=== PATIENT | male | born 1995 | race Caucasian/White ===

== ENCOUNTER 2020-09-21 11:41 | Emergency (ER) | payer SELFPAY ==
--- OUTSIDE RECORDS SUMMARY | 2020-09-21 11:47 | XMS REPORT | Continuity of Care Document ---
:1995 Author Organization [facility] t Address [address] [place] [address] Care Team Providers Name Role Phone Pcp Primary Care Physician Unavailable Uziel MARCH Attending Clinician Unavailable David CUMMINGS Attending Clinician Unavailable RODERICK Attending Clinician Unavailable NONE Attending Clinician Unavailable KRISTEN Attending Clinician Unavailable Uziel MARCH Admitting Clinician Unavailable David CUMMINGS Admitting Clinician Unavailable RODERICK Admitting Clinician Unavailable NONE Admitting Clinician Unavailable KRISTEN Admitting Clinician Unavailable Problems Condition Condition Condition Status Onset Resolution Last Treating Co mments Source Name Details Category Date Date Treatment Clinician Date Vomiting V[facility] (LUF/LI V/SA) Dehydratio Dehydratio Problem Active [facility] l (LUF/LI V/SA) Refractory Refractory Problem Active 2019-[address] nausea and nausea and 1-16 Graciela kes - vomiting vomiting 00:00: Memori a 00 l (LUF/LI V/SA) Colitis Colitis Problem Active [facility] l (LUF/LI V/SA) Dehydratio Dehydratio Problem Active [facility] Memoria [facility] l (LUF/LI V/SA) Suicidal Suicidal Problem [facility] 2018[facility] - [facility] Memoria 00 l (LUF/LI V/SA) Gastritis Gastritis Problem Active 2018-05 [facility] 1-15 [facility] - 00:[facility]: Memoria 00 l (LUF/LI V/SA) Severe Severe Disease Active [facility] dehydratio dehydratio 6-17 Graciela kes - n n 00:00: [facility] Allergies, Adverse Reactions, Alerts This patient has no known allergies or adverse reactions. Social History Social Habit Start Date Stop Date Quantity Comments Source Sex Assigned At [facility] History of tobacco Cigarette Smoker [facility] use [facility] Cigarettes smoked [address] [facility] - current (pack per 00:00:00 00:00:00 Medical Center day) - Reported Tobacco use and 2018 2018 Current user [facility] - exposure 00:00:00 00:00:00 [facility] Alcohol intake 2018 2018 Current drinker [facility] - 00:00:00 00:00:00 of alcohol [facility] Center (finding) Alcohol Comment 2015-10-22 2015-10-[address] [facility] - 00:00:00 00:00:00 [facility] Smoking Status Start Date Stop Date Source Current every day smoker 2018 00:00:00 [facility] Medications Ordered Filled Start Stop Current Ordering Indication Dosage Frequency Signature Comments Components Source Medication Medication Date Date Medication? Clinician (SIG) Name Name sertraline sertraline Yes 25mg 1xD [facility] 25 MG Oral 25 MG Oral [facility] es - Tablet Tablet Memoria l (LUF/LI V/SA) trazodone trazodone Yes [facility]mg [facility] hydrochlori hydrochlori [facility] - de 50 MG de 50 MG Memoria Oral Tablet Oral Tablet l (LUF/LI V/SA) ondansetron ondansetron Yes 4mg Q10.00H orally [address] [facility] 4 MG Oral 4 MG Oral to 3 times [facility] - Tablet Tablet per day as Memor ia needed. l (LUF/LI V/SA) pantoprazol pantoprazol Yes 40mg 1xD orally [facility] 40 MG e 40 MG daily [facility] - Delayed Delayed Memoria Release Release l Oral Tablet Oral Tablet ( LUF/LI V/SA) promethazin promethazin Yes 25mg 4xD orally [facility] e every 6 [facility] - hydrochlori hydrochlori hours as Memoria de 25 MG de 25 MG needed. l Oral Tablet Oral Tablet (as needed (LUF/LI for nausea V/SA) and vomiting) sertraline sertraline Yes 25mg 1xD orally [facility] 25 MG Oral 25 MG Oral daily Graciela kes - Tablet Tablet Memoria l (LUF/LI V/SA) trazodone trazodone Yes 50mg orally [facility] hydrochlori hydrochlori every day [facility] - de 50 MG de 50 MG at bedtime M emoria Oral Tablet Oral Tablet l (LUF/LI V/SA) ondansetron ondansetron Yes 4mg Q10.00H [facility] 4 MG Oral 4 MG Oral [facility] - Tablet Tablet Memoria l (LUF/LI V/SA) pantoprazol pantoprazol Yes 40mg 1xD [facility] e 40 MG e 40 MG [facility] - Delayed Delayed Memoria Release Release l Oral Tablet Oral Tablet ( LUF/LI V/SA) promethazin promethazin Yes 25mg 4xD [facility] e [facility] - hydrochlori hydrochlori M emoria de 25 MG de 25 MG l Oral Tablet Oral Tablet ( LUF/LI V/SA) Immunizations Ordered Immunization Filled Immunization Date Status Commen ts Source Name Name Influenza, Influenza, 2020-03-23 Completed [facility] injectable, injectable, 13:48:00 [facility] quadrivalent, quadrivalent, (F/DUSTY /SA) preservative free preservative free Vital Signs Vital Name Observation Time Observation Value Comments Source Body Temperature 2020-07-26 19:00:00 98.5 [degF] [facility] (LUF/DUSTY/SA) Pulse Rate 2020-07-26 19:00:00 60 /min [facility] (F/DUSTY/SA) O2% BldC Oximetry 2020-07-26 19:00:00 98 % [facility] (F/DUSTY/SA) BP Systolic 2020-07-26 19:00:00 142 mm[Hg] [facility] (LUF/DUSTY/SA) BP Diastolic 2020-07-26 19:00:00 76 mm[Hg] [facility] (LUF/DUSTY/SA) Respiratory Rate 2020-07-26 14:02:00 20 /min [facility] (LUF/DUSTY/SA) Pulse Rate 2020-05-10 20:31:00 67 /min [facility] (LUF/DUSTY/SA) O2% BldC Oximetry 2020-05-10 20:31:00 99 % [facility] (LUF/DUSTY/SA) BP Systolic 2020-05-10 20:31:00 114 mm[Hg] [facility] (LUF/DUSTY/SA) BP Diastolic 2020-05-10 20:31:00 49 mm[Hg] [facility] (LUF/DUSTY/SA) Respiratory Rate 2020-05-10 13:46:00 23 /min [facility] (LUF/DUSTY/SA) Body Temperature 2020-05-10 13:41:00 97.6 [degF] [facility] (LUF/DUSTY/SA) Height 2020-05-10 13:41:00 70 [in_i] [facility] (LUF/DUSTY/SA) Weight 2020-05-10 13:41:00 135 [lb_av] [facility] (LUF/DUSTY/SA) BMI (Body Mass Index) 2020-05-10 13:41:00 19.5 kg/m2 [facility] (LUF/DUSTY/SA) Body Temperature 2020-03-23 11:00:00 97.2 [degF] [facility] (LUF/DUSTY/SA) Pulse Rate 2020-03-23 11:00:00 55 /min [facility] (LUF/DUSTY/SA) Respiratory Rate 2020-03-23 11:00:00 18 /min [facility] (LUF/DUSTY/SA) O2% BldC Oximetry 2020-03-23 11:00:00 100 % [facility] (LUF/DUSTY/SA) BP Systolic 2020-03-23 11:00:00 125 mm[Hg] [facility] (LUF/DUSTY/SA) BP Diastolic 2020-03-23 11:00:00 73 mm[Hg] [facility] Weight 2020-03-22 20:45:00 62 kg MANSI [facility] (LUF/DUSTY/SA) Height 2020-03-22 10:07:00 70 [in_i] MANSI [facility] (LUF/DUSTY/SA) Body Temperature 2020-03-21 02:40:00 98.3 [degF] MANSI Lee [facility] (LUF/DUSTY/SA) Pulse Rate 2020-03-21 02:40:00 68 /min MANSI [facility] (LUF/DUSTY/SA) Respiratory Rate 2020-03-21 02:40:00 18 /min MANSI Lee [facility] (LUF/DUSTY/SA) O2% BldC Oximetry 2020-03-21 02:40:00 100 % [facility] BP Systolic 2020-03-21 02:40:00 132 mm[Hg] MANSI [facility] (LUF/DUSTY/SA) BP Diastolic 2020-03-21 02:40:00 72 mm[Hg] MANSI [facility] (LUF/DUSTY/SA) Height 2020-03-20 22:45:00 71 [in_i] MANSI [facility] (LUF/DUSTY/SA) Weight 2020-03-20 22:45:00 63 kg MANSI [facility] (LUF/DUSTY/SA) BMI (Body Mass Index) 2020-03-20 22:45:00 19.4 kg/m2 [facility] (LUF/DUSTY/SA) BP Systolic 2020-02-04 02:01:00 108 mm[Hg] MANSI [facility] (LUF/DUSTY/SA) BP Diastolic 2020-02-04 02:01:00 52 mm[Hg] MANSI [facility] (LUF/DUSTY/SA) Body Temperature 2020-02-04 02:00:00 97.6 [degF] [facility] Pulse Rate 2020-02-04 02:00:00 89 /min MANSI [facility] (LUF/DUSTY/SA) Respiratory Rate 2020-02-04 02:00:00 18 /min [facility] (LUF/DUSTY/SA) O2% BldC Oximetry 2020-02-04 02:00:00 100 % [facility] (LUF/DUSTY/SA) Height 2020-02-03 21:36:00 70 [in_i] [facility] Angie [facility] (LUF/DUSTY/SA) Weight 2020-02-03 21:36:00 130 [lb_av] [facility] (LUF/DUSTY/SA) BMI (Body Mass Index) 2020-02-03 21:36:00 18.8 kg/m2 [facility] (LUF/DUSTY/SA) Pulse Rate 2019-12-19 23:08:00 64 /min [facility] (LUF/DUSTY/SA) O2% BldC Oximetry 2019-12-19 23:08:00 100 % [facility] (LUF/DUSTY/SA) BP Systolic 2019-12-19 23:08:00 113 mm[Hg] [facility] (LUF/DUSTY/SA) BP Diastolic 2019-12-19 23:08:00 55 mm[Hg] [facility] (LUF/DUSTY/SA) Body Temperature 2019-12-19 18:02:00 97.2 [degF] [facility] (LUF/DUSTY/SA) Respiratory Rate 2019-12-19 18:02:00 18 /min [facility] (LUF/DUSTY/SA) Height 2019-12-19 18:02:00 65 [in_i] [facility] (LUF/DUSTY/SA) Weight 2019-12-19 18:02:00 130 [lb_av] [facility] (LUF/DUSTY/SA) BMI (Body Mass Index) 2019-12-19 18:02:00 21.6 kg/m2 [facility] (LUF/DUSTY/SA) Procedures Procedure Date / Time Performed Performing Clinician [facility] GASTR[facility] / 2020-03-23 10:29:00 [facility] COLONOSCOPY [facility] (LUF/DUSTY/SA) EGD TRANSORAL BIOPSY 2020-03-23 00:00:[address] [facility] - SINGLE[facility]MULTIPLE [facility] (LUF/DUSTY/SA) Plan of Care Planned Activity Planned Date Details Comments Source Future Scheduled 2020-01-06 INFLUENZA VACCINE (#1) [facility] - Test 00:00:00 [code = INFLUENZA Medical Ce nter VACCINE (#1)] Future Scheduled 2015 Lipid panel [facility] s - Test 00:00:00 (procedure) [code = Medical Center [id number]] Future Scheduled 2001 PNEUMOCOCCAL VACCINE [facility] - Test 00:00:00 0-64 YRS (1 of 1 - Medical C enter PPSV23) [code = PNEUMOCOCCAL VACCINE 0-64 YRS (1 of 1 - PPSV23)] Encounters Start End Encounter Admission Attending Care Care Encounter Source Date/Time Date/Time Type Type Clinicians Facility Department ID 2020-07-26 2020-07-26 RADHA MARCH, [facility] [id number] [facility] St 13:47:00 19:22:[address] [facility] - [place] N, [address] [place], [place] [address] 2020-07-26 2020-07-26 Inpatient [facility] [id number] [facility] 00:00:00 00:00:00 [facility] [id number] [facility] - N, [id number] [place]PASS, ([place] [address] 2020-07-26 2020-07-26 Inpatient [facility] [id number] [facility] 00:00:00 00:00:00 [facility] [id number] [facility] - N, [id number] [id number] l [place]PASS, (LUF[place] [address] 2020-05-10 2020-05-10 PROC&TX [facility] [id number] [facility] St 22:55:00 23:40:[address] [facility] L ukes - CARRIED N, [address] LE[address] [place]PASS, (LUF/[place] [address] 2020-05-10 2020-05-10 NAUSEA E JOAQUIM, [facility] [id number] [facility] 13:36:00 20:58:00 [facility] DON[facility] u[facility] - VOMITING N, [address] D [place]PASS, (LUF/[place] [address] 2020-05-10 2020-05-10 Inpatient [facility] [id number] [facility] [id number] [facility] - N, [address] [id number] [address] [id number] l [place]PASS, (LUF/[place] [address] 2020-05-10 2020-05-10 Inpatient [facility] [id number] [facility] [facility] [id number] [facility] - N, [address] [id number] [id number] [address] [place]PASS, ([place] [address] 2020-05-10 2020-05-10 Inpatient [facility] [id number] [facility] [facility]00 [facility] [id number] [facility] - N, [address] [id number] [address] [id number] [address] [place]PASS, ([place] [address] 2020-05-10 2020-05-10 Inpatient [facility] [id number] [facility] [facility]00 00[facility]:00 [facility] [id number] [facility] - N, [address] [id number] [id number] l [place]PASS, (LUF[place] [address] 2020-03-23 2020-03-23 Inpatient [facility] [place] [id number] 11:30:00 23:59:00 [place] [facility] [place], [address] (LUF/LI [address], V/[place]) [place] [address] 2020-03-22 2020-03-23 UNS E JOAQUIM, [facility] [id number] [facility] 09:59:00 13:48:00 CHRONIC VU RAJENDRA DONALD L ukes - GASTRITIS N, [address] BLEEDING [place]PASS, ([place] [address] 2020-03-20 2020-03-21 GENERALIZE E FASULLO, [facility] [id number] [facility] 22:33:00 02:40:00 D KARI BELLO ODILON L ukes - ABDOMINAL N, [address] [place], (LUF[place] [address] 2020-02-03 2020-02-04 NONINFECTI E MACO VAUGHN [facility] [id number] [facility] 21:26:00 02:09:00 VE GE & BELLO ODILON L ukes - COLITIS N, [address] [place], (LUF/[place] [address] 2019-12-19 2019-12-19 DEHYDRATIO E [facility] [id number] [facility] 17:55:00 23:09:00 N RAJENDRA DONALD L ukes - N, [address] [place], ([place] [address] Results Test Description Test Time Test Comments Results Result Comments Source [facility] 2020-07-26 16:13:00 Test Item Value Reference Range Interpretation Comme nts Glucose (test code = GLU) 187 mg/dl 75-110 H BUN (test code = BUN) 10.0 mg/dl 6.0-17.0 Creatinine (test code = 0.8 mg/dl 0.4-1.2 CREA) Sodium (test code = NA) 139 mmol/l 137-145 Potassium (test code = K) 3.2 mmol/l 3.5-5.0 L Chloride (test code = CL) 108 mmol/l 98-107 H CO2 (test code = CO2) 21 mmol/l 22-30 L Calcium (test code = 9.6 mg/dl 8.4-10.2 CALC) T Protein (test code = 7.7 gm/dl 5.1-8.7 TP) Albumin (test code = ALB) 4.3 gm/dl 3.5-4.6 A/G Ratio (test code = 1.3 % 1.1-2.2 AGRAT) AST (SGOT) (test code = 18 U/L 11-36 AST) ALT (SGPT) (test code = 20 U/L 11-40 ALT) Alkaline Phos (test code 74 U/L 47-114 = ALKP) Total Bilirubin (test 0.3 mg/dl 0.2-1.2 code = TBIL) Globulin (test code = 3.4 gm/dl 2.3-3.5 GLOBU) Calcium, Corrected (test 9.4 mg/dl 8.4-10.2 Lorna ious formulas exist for code = CALCCORR) corrected s martin calcium results, each y ielding different value s. This corrected resul t was based on the formula: Co rrected Calcium = Serum Calcium + [0.8 * ( 4 - SerumAl bumin)] EGFR if >60 mL/min/1.73m\\S\\2 (test code = EGFRAA) EGFR if Non- >60 mL/min/1.73m\\S\\2 Estimated Glomerular Mauritanian (test code = Filtra tion Rate (eGFR) EGFRNA) Reference Inter vals Decision Points for 18 y ears and older and average bod y mass: >= 60 Does not exclude kid macario disease. 30 - 59 Suggests moderate chroni c kidney disease and indica jewell the need for further inv estigation including asses sment of proteinuria and cardiovascular factors. < 30 Us ually indicates a nee d for referral for assessment and management of chronic kidney failure. [id number] 16:13:00 Test Item Value Reference Range Interpretation Comments Lipase (test code = LIPA) 169 U/L 8-223 CBC WITH AUTO [id number] 15:20:00 Test Item Value Reference Range Interpretation Comments WBC (test code = 24.51 4.80-10.80 H WBC) 10\\S\\3/ul RBC (test code = 4.43 10\\S\\6/ul 4.70-6.10 L RBC) Hemoglobin (test 13.9 gm/dl 14.0-18.0 L code = HGB) Hematocrit (test 38.5 % 42.0-50.0 L code = HCT) MCV (test code = 86.9 fL 80.0-94.0 MCV) MCH (test code = 31.4 pg 27.0-31.0 H MCH) MCHC (test code = 36.1 gm/dl 33.0-37.0 MCHC) RDW (test code = 12.1 % 11.5-14.5 RDWVC) Platelet (test code 342 10\\S\\3/ul 130-400 = PLT) MPV (test code = 9.5 fL 7.4-10.4 A "NOT MEASUR ED" MPV) RESULTS ARE DIS PLAYED WHEN THE INSTRU MENT HAS A SUPPRESSE D OR UNREPORTABLE RE SULT. THIS WILL MOST OFTEN HAPPEN WITH THE MPV WHEN THERE IS A N ABNORMAL PLATEL ET DISTRIBUTION DU E TO A CRITICAL LOW VA LUE OR PLATELET CLUMPI NG. THE RDW MAY BE SUPPRESSED IF T HERE ARE MULTIPLE PE AKS PRESENT ON THE RBC HISTOGRAM. IN THIS CASE, A MANUAL REVIEW OF THE SLIDE WI LL BE PERFORMED, AND RBC MORPHOLOGY WILL BE NOTED ON THE RE PORT. NE% (test code = 85.9 % 42.0-75.0 H NE) LY% (test code = 6.6 % 13.0-42.0 L LY) MO% (test code = 5.7 % 4.0-14.0 MO) EO% (test code = 0.2 % 1.0-5.0 L EO) BA% (test code = 0.5 % 0.0-3.0 BA) IG% (test code = 1.1 % 0.0-0.4 H IG%) CULTURE, [id number] 20:07:00To start 15mins after 1st cultureSpecimen: BloodCollected: 05/10/2020 19:07 Status: Final Last Updated: 05/15/2020 20:06 (1) To start 15mins after 1st culture CULTURE (Final) (Final) No Growth After 5 DaysCULTURE, ANAEROBE [id number] 20:07:00Specimen: BloodCollected: 05/10/2020 19:07 Status: Final Last Updated: 05/15/2020 20:06 CULTURE (Final) (Final) No Growth After 5 DaysCULTURE, ANAEROBE BLOOD 2020-05-15 20:07:00Specimen: BloodCollected: 05/10/2020 19:07 Status: Final Last Updated: 05/15/2020 20:06 CULTURE (Final) (Final) No Growth After 5 Days CULTURE, [id number] 20:07:00Specimen: BloodCollected: 05/10/2020 19:07 Status: Final Last Updated: 05/15/2020 20:06 CULTURE (Final) (Final) No Growth After 5 DaysLACTIC ACID [id number] 19:58:00 Test Item Value Reference Range Interpretation Comments LACTATE (test code = 3.7 mmol/l 0.7-2.0 HH RESULT CALLED TO RICARDO FLOYD RN (ER ) AT 19:55/READ BACK /R Critical values were called to RICARDO PORTER by [id number] on 05/10/20 19:58 . Results were read back by RICARDO PORTER.CBC WITH AUTO [id number] 19:25:00 Test Item Value Reference Range Interpretation Comments WBC (test code = WBC) 27.44 10\\S\\3/ul 4.80-10.80 H RBC (test code = RBC) 4.34 10\\S\\6/ul 4.70-6.10 L Hemoglobin (test code 13.9 gm/dl 14.0-18.0 L = HGB) Hematocrit (test code 38.6 % 42.0-50.0 L = HCT) MCV (test code = MCV) 88.9 fL 80.0-94.0 MCH (test code = MCH) 32.0 pg 27.0-31.0 H MCHC (test code = 36.0 gm/dl 33.0-37.0 MCHC) RDW (test code = 12.2 % 11.5-14.5 RDWVC) Platelet (test code = 331 10\\S\\3/ul 130-400 PLT) MPV (test code = MPV) 9.5 fL 7.4-10.4 A NE% (test code = NE) 88.2 % 42.0-75.0 H LY% (test code = LY) 3.8 % 13.0-42.0 L MO% (test code = MO) 7.1 % 4.0-14.0 EO% (test code = EO) 0.0 % 1.0-5.0 L BA% (test code = BA) 0.3 % 0.0-3.0 IG% (test code = IG%) 0.6 % 0.0-0.4 H Neutrophils (test 89 10\\S\\3/ul 42-75 H No previou s value code = NEUTR) was reported. A value of 89 was entered by [id number] on 05/10/2020 19:25 Lymphocytes (test 5 % 13-42 L No previou s value code = LYMPH) was reported. A value of 5 was entered by [email or web address] on 05/10/2020 19:25 Monocytes (test code 6 % 4-14 No prev ious value = MONOS) was reported. A value of 6 was entered by [email or web address] on 05/10/2020 19:25 [id number] 17:59:00 Test Item Value Reference Range Interpretation Comments Lipase (test code = LIPA) 102 U/L 8-223 [id number] 17:59:00 Test Item Value Reference Range Interpretation Comments Glucose (test code 163 mg/dl 75-110 H = GLU) BUN (test code = 8.0 mg/dl 6.0-17.0 BUN) Creatinine (test 0.9 mg/dl 0.4-1.2 code = CREA) Sodium (test code = 138 mmol/l 137-145 NA) Potassium (test 3.4 mmol/l 3.5-5.0 L code = K) Chloride (test code 106 mmol/l 98-107 = CL) CO2 (test code = 22 mmol/l 22-30 CO2) Calcium (test code 9.9 mg/dl 8.4-10.2 = CALC) T Protein (test 8.1 gm/dl 5.1-8.7 code = TP) Albumin (test code 4.5 gm/dl 3.5-4.6 = ALB) A/G Ratio (test 1.3 % 1.1-2.2 code = AGRAT) AST (SGOT) (test 16 U/L 11-36 code = AST) ALT (SGPT) (test 20 U/L 11-40 code = ALT) Alkaline Phos (test 88 U/L 47-114 code = ALKP) Total Bilirubin 0.6 mg/dl 0.2-1.2 (test code = TBIL) Globulin (test code 3.6 gm/dl 2.3-3.5 H = GLOBU) Calcium, Corrected 9.5 mg/dl 8.4-10.2 Various f ormulas exist (test code = for corrected s martin CALCCORR) calcium results , each yielding differ ent values. This corrected resul t was based on the fo rmula: Corrected Calci um = SerumCalcium + [0.8 * ( 4 - SerumAlbu min)] EGFR if >60 Mauritanian (test code mL/min/1.73m\\ = EGFRAA) S\\2 EGFR if Non- >60 Estimate d Glomerular Mauritanian (test code mL/min/1.73m\\ Filtrat ion Rate (eGFR) = EGFRNA) S\\2 Reference Inter vals Decision Points for 18 years and older and average body ma ss: >= 60 Does not exc lude kidney disease. 30 - 59 Suggests modera te chronic kidney disease and indicat es the need for furthe r investigation including asses sment of proteinuria and cardiovascular factors. < 30 Usually in dicates a need for refe rral for assessment and management of c hronic kidney failure. [id number] 05:27:00 Test Item Value Reference Range Interpretation Comments Glucose (test code 92 mg/dl 75-110 = GLU) BUN (test code = 6.0 mg/dl 6.0-17.0 BUN) Creatinine (test 0.8 mg/dl 0.4-1.2 code = CREA) Sodium (test code = 142 mmol/l 137-145 NA) Potassium (test 3.9 mmol/l 3.5-5.0 code = K) Chloride (test code 110 mmol/l 98-107 H = CL) CO2 (test code = 28 mmol/l 22-30 CO2) Calcium (test code 8.5 mg/dl 8.4-10.2 = CALC) EGFR if >60 Mauritanian (test code mL/min/1.73m\\ = EGFRAA) S\\2 EGFR if Non- >60 Estimate d Glomerular Mauritanian (test code mL/min/1.73m\\ Filtrat ion Rate (eGFR) = EGFRNA) S\\2 Reference Inter vals Decision Points for 18 years and older and average body ma ss: >= 60 Does not exc lude kidney disease. 30 - 59 Suggests modera te chronic kidney disease and indicat es the need for furthe r investigation including asses sment of proteinuria and cardiovascular factors. < 30 Usually in dicates a need for refe rral for assessment and management of c hronic kidney failure. CBC WITH AUTO [id number] 05:09:00 Test Item Value Reference Range Interpretation Comments WBC (test code = WBC) 14.50 10\\S\\3/ul 4.80-10.80 H RBC (test code = RBC) 4.30 10\\S\\6/ul 4.70-6.10 L Hemoglobin (test code = HGB) 13.4 gm/dl 14.0-18.0 L Hematocrit (test code = HCT) 39.7 % 42.0-50.0 L MCV (test code = MCV) 92.3 fL 80.0-94.0 MCH (test code = MCH) 31.2 pg 27.0-31.0 H MCHC (test code = MCHC) 33.8 gm/dl 33.0-37.0 RDW (test code = RDWVC) 12.6 % 11.5-14.5 Platelet (test code = PLT) 266 10\\S\\3/ul 130-400 MPV (test code = MPV) 9.6 fL 7.4-10.4 A NE% (test code = NE) 68.2 % 42.0-75.0 LY% (test code = LY) 20.2 % 13.0-42.0 MO% (test code = MO) 9.6 % 4.0-14.0 EO% (test code = EO) 0.9 % 1.0-5.0 L BA% (test code = BA) 0.6 % 0.0-3.0 IG% (test code = IG%) 0.5 % 0.0-0.4 H CORONAVIRUS 2019 CEPHEID [id number] 18:32:00 Test Item Value Reference Range Interpretation Comments FT (test code Negative The Cephied SA RS-CoV-2 = COVID) (qualifier value) reagent is for in vitro use under FDA Emergency Use Authorization o nly. [facility] This test is performed for stat results in MOOSE [id number] 15:45:28 [facility])Name: HONG KAUR JR EARLE : [id number] Sex: MRIGHT UPPER QUADRANT ULTRASOUND:INDICATION: Abdominal painDISCUSSION:The liver is normal in size and echogenicity. There is no intrahepatic biliaryduct dilatation. Hepatopedal flow is noted in the portal vein.The gallbladder is unremarkable. No sonographic Aguilar's sign was elicited. Thecommon duct is not dilated.The visualized portions of the pancreas, IVC, aorta and right kidney show nosignificant abnormality.There is no ascites in the right upper quadrant.IMPRESSION:Normal right upper quadrant ultrasound.This final report was electronically signed by Dr Hari Perez MD 03/22/20203:39 PMDictated By: HARI PEREZDate: 03/22/2020 15:39URINALYSIS WITH [id number] 13:08:00 Test Item Value Reference Range Interpretation Comments Color (test code = Lt. Yellow UCOLR) Clarity (test code = Clear UCLAR) Glucose (test code = NEGATIVE NEGATIVE N UGLUC) Bilirubin (test code = NEGATIVE NEGATIVE N UBILI) Ketones (test code = 15 NEGATIVE A UKET) Specific [place] (test 1.020 1.005-1.030 A code = USPGR) Blood (test code = UBLD) NEGATIVE NEGATIVE N PH (test code = UPH) 6.5 4.5-8.0 A Protein (test code = NEGATIVE NEGATIVE N UPROT) Urobilinogen (test code 0.2 >0.2 N = U UROB) Nitrite (test code = NEGATIVE NEGATIVE N UNITR) Leukocyte Esterase (test NEGATIVE NEGATIVE N code = ULEUK) WBC (test code = WBCUR) 0-2 0-5 A RBC (test code = RBCUR) 0-1 0-5 A Epithial Cells (test 0-2 0-10 A code = U EPI) Mucous (test code = Trace None Seen A UMUC) Bacteria (test code = Trace None Seen,Trace N UBACT) Crystals Urine (test Few Amorphous None Seen A code = URCRYS) Sediment DRUG SCREEN [id number] 12:49:00 Test Item Value Reference Range Interpretation Comments FT (test code = Negative AMPHET) (qualifier value) FT (test code = Negative ALVINO) (qualifier value) FT (test code = Negative BENZO) (qualifier value) FT (test code = Negative GABI) (qualifier value) FT (test code = Negative MTD) (qualifier value) FT (test code = Negative OPIAT) (qualifier value) FT (test code = Negative The followin g table PCP) (qualifier provides an value) interpretive gu elmer for the Drugs of Ab use ran on the Siemens [place] analyzer listed there in: [place] mines < 1000 ng/ml = Negative Barbituates < 200 ng/ml = Negat ileana Benzodiazapines < 200 ngml = Negat ileana Cocaine < 300 ng/ml = Negat ileana Methadone < 300 ng/ml = Negat ileana Opiate < 300 ng/ml = Negat ileana PCP < 25 ng/ml = Nega tive THC < 50 ng/ml = Negat ileana Results equal t o or greater than th e above cut-off values = Presumptive Pos itive. Confirmation of Presumptive Pos itive results are elliot ilable upon request. Cannabinoids, Positive THC (test code = THC) PH (test code = 6.5 No previous value was UPH) reported. A lillian ue of 6.5 was entered by [id number] on 03/07 12:49 Specific [place] 1.020 No previous value was (test code = reported. A lillian ue of USPGR) 1.020 was enter ed by [id number] on 03/07 12:49 [id number] 11:18:00 Test Item Value Reference Range Interpretation Comments Glucose (test code 141 mg/dl 75-110 H = GLU) BUN (test code = 8.0 mg/dl 6.0-17.0 BUN) Creatinine (test 0.9 mg/dl 0.4-1.2 code = CREA) Sodium (test code = 141 mmol/l 137-145 NA) Potassium (test 3.3 mmol/l 3.5-5.0 L code = K) Chloride (test code 109 mmol/l 98-107 H = CL) CO2 (test code = 21 mmol/l 22-30 L CO2) Calcium (test code 9.4 mg/dl 8.4-10.2 = CALC) T Protein (test 8.1 gm/dl 5.1-8.7 code = TP) Albumin (test code 4.6 gm/dl 3.5-4.6 = ALB) A/G Ratio (test 1.3 % 1.1-2.2 code = AGRAT) AST (SGOT) (test 35 U/L 11-36 code = AST) ALT (SGPT) (test 23 U/L 11-40 code = ALT) Alkaline Phos (test 96 U/L 47-114 code = ALKP) Total Bilirubin 0.4 mg/dl 0.2-1.2 (test code = TBIL) Globulin (test code 3.5 gm/dl 2.3-3.5 = GLOBU) Calcium, Corrected 8.9 mg/dl 8.4-10.2 Various f ormulas exist (test code = for corrected s martin CALCCORR) calcium results , each yielding differ ent values. This corrected resul t was based on the fo rmula: Corrected Calci um = SerumCalcium + [0.8 * ( 4 - SerumAlbu min)] EGFR if >60 [place] (test code mL/min/1.73m\\ = EGFRAA) S\\2 EGFR if Non- >60 Estimate d Glomerular [place] (test code mL/min/1.73m\\ Filtrat ion Rate (eGFR) = EGFRNA) S\\2 Reference Inter vals Decision Points for 18 years and older and average body ma ss: >= 60 Does not exc lude kidney disease. 30 - 59 Suggests modera te chronic kidney disease and indicat es the need for furthe r investigation including asses sment of proteinuria and cardiovascular factors. < 30 Usually in dicates a need for refe rral for assessment and management of c hronic kidney failure. [id number] 11:18:00 Test Item Value Reference Range Interpretation Comments Lipase (test code = LIPA) 156 U/L 8-223 CBC WITH AUTO [id number] 11:08:00 Test Item Value Reference Range Interpretation Comments WBC (test code = WBC) 20.91 10\\S\\3/ul 4.80-10.80 H RBC (test code = RBC) 4.52 10\\S\\6/ul 4.70-6.10 L Hemoglobin (test code 14.6 gm/dl 14.0-18.0 = HGB) Hematocrit (test code 41.2 % 42.0-50.0 L = HCT) MCV (test code = MCV) 91.2 fL 80.0-94.0 MCH (test code = MCH) 32.3 pg 27.0-31.0 H MCHC (test code = 35.4 gm/dl 33.0-37.0 MCHC) RDW (test code = 12.4 % 11.5-14.5 RDWVC) Platelet (test code = 321 10\\S\\3/ul 130-400 PLT) MPV (test code = MPV) 9.5 fL 7.4-10.4 A NE% (test code = NE) 83.0 % 42.0-75.0 H LY% (test code = LY) 9.4 % 13.0-42.0 L MO% (test code = MO) 6.2 % 4.0-14.0 EO% (test code = EO) 0.5 % 1.0-5.0 L BA% (test code = BA) 0.4 % 0.0-3.0 IG% (test code = IG%) 0.5 % 0.0-0.4 H Neutrophils (test 85 10\\S\\3/ul 42-75 H No previou s value code = NEUTR) was reported. A value of 85 was entered by [id number] on 03/22/2020 11:08 Lymphocytes (test 8 % 13-42 L No previou s value code = LYMPH) was reported. A value of 8 was entered by [id number] on 03/22/2020 11:08 Monocytes (test code 7 % 4-14 No prev ious value = MONOS) was reported. A value of 7 was entered by [id number] 570 on 03/22/2020 11:08 [id number] 11:07:00 Test Item Value Reference Range Interpretation Comments Magnesium (test code = MG) 1.7 mg/dl 1.6-2.3 CT ABDOMEN/PELVIS [id number] 00:54:47with IV contrast [facility] ([facility]Name: HONG KAUR JR EARLE : [id number] Sex: MEXAM: CT Abdomen and Pelvis WITH contrastINDICATION: [id number]: Abdominal painCOMPARISON: Abdominal CT February 03, 2020.TECHNIQUE: Abdomen and pelvis were scanned utilizing a multidetector helicalscanner from the lung base to the pubic symphysis after administration of IVcontrast. Coronal and sagittal reformations were obtained. Routine protocol wasperformed. Scan was performed when during portal venous phase.IV CONTRAST: 100 mL of Isovue 300ORAL CONTRAST: NoneCOMPLICATIONS: NoneRADIATION DOSE:Total DLP: ... 325 mGy*cmEstimated effective dose: (DLP x 0.015 x size factor) mSvCTDIvol has been reviewed. It is below the limits set by the RadiationProtocol Committee (RPC).Dose modulation, iterative reconstruction, and/or weight based adjustmentsof the mA/kV was utilized to reduce the radiation dose to as low as reasonablyachievable.FINDINGS:LINES and TUBES: None.LOWER THORAX: UnremarkableHEPATOBILIARY: No focal hepatic lesions. No biliary ductal dilation.GALLBLADDER: Noradio-opaque stones or sludge. No wall thickening.SPLEEN: No splenomegaly.PANCREAS: No focal massesor ductal dilatation.ADRENALS: No adrenal nodulesKIDNEYS/URETERS: Kidneys enhance symmetrically. Nohydronephrosis. No cystic orsolid mass lesions. No stones.GI TRACT: No abnormal distention, wall thickening, or evidence of bowelobstruction. Appendix is normal.PELVIC ORGANS/BLADDER: Unremarkable.LYMPH NODES: No lymphadenopathy.VESSELS: Unremarkable.PERITONEUM / RETROPERITONEUM: No free air orfluid.BONES: Unremarkable.SOFT TISSUES: Unremarkable.IMPRESSION:No acute CT abnormality in the abdomen or pelvisThis final report was electronically signed by Dr Jony Barkley, 03/21/202012:48 AMDictated By: JONY BARKLEYDate: 03/21/2020 00:48URINALYSIS WITH [id number] 00:15:00 Test Item Value Reference Range Interpretation Comments Color (test code = Yellow UCOLR) Clarity (test code = Clear UCLAR) Glucose (test code = NEGATIVE NEGATIVE N UGLUC) Bilirubin (test code = NEGATIVE NEGATIVE N UBILI) Ketones (test code = 15 NEGATIVE A UKET) Specific [place] (test 1.015 1.005-1.030 A code = USPGR) Blood (test code = UBLD) NEGATIVE NEGATIVE N PH (test code = UPH) >=9.0 4.5-8.0 A Protein (test code = NEGATIVE NEGATIVE N UPROT) Urobilinogen (test code 0.2 >0.2 N = U UROB) Nitrite (test code = NEGATIVE NEGATIVE N UNITR) Leukocyte Esterase (test NEGATIVE NEGATIVE N code = ULEUK) WBC (test code = WBCUR) None seen 0-5 A RBC (test code = RBCUR) None seen 0-5 A Epithial Cells (test 0-2 0-10 A code = U EPI) Bacteria (test code = None seen None Seen,Trace A UBACT) Crystals Urine (test Moderate Amorphous None Seen A code = URCRYS) Sediment [id number] 00:01:00 Test Item Value Reference Range Interpretation Comments Glucose (test code 157 mg/dl 75-110 H = GLU) BUN (test code = 9.0 mg/dl 6.0-17.0 BUN) Creatinine (test 1.1 mg/dl 0.4-1.2 code = CREA) Sodium (test code = 140 mmol/l 137-145 NA) Potassium (test 2.9 mmol/l 3.5-5.0 LL code = K) Chloride (test code 107 mmol/l 98-107 = CL) CO2 (test code = 22 mmol/l 22-30 CO2) Calcium (test code 9.1 mg/dl 8.4-10.2 = CALC) T Protein (test 8.0 gm/dl 5.1-8.7 code = TP) Albumin (test code 4.3 gm/dl 3.5-4.6 = ALB) A/G Ratio (test 1.2 % 1.1-2.2 code = AGRAT) AST (SGOT) (test 22 U/L 11-36 code = AST) ALT (SGPT) (test 22 U/L 11-40 code = ALT) Alkaline Phos (test 92 U/L 47-114 code = ALKP) Total Bilirubin 0.4 mg/dl 0.2-1.2 (test code = TBIL) Globulin (test code 3.7 gm/dl 2.3-3.5 H = GLOBU) Calcium, Corrected 8.9 mg/dl 8.4-10.2 Various f ormulas exist (test code = for corrected s martin CALCCORR) calcium results , each yielding differ ent values. This corrected resul t was based on the fo rmula: Corrected Calci um = SerumCalcium + [0.8 * ( 4 - SerumAlbu min)] EGFR if >60 Maur[place]ian (test code mL/min/1.73m\\ = EGFRAA) S\\2 EGFR if Non- >60 Estimate d Glomerular [place] (test code mL/min/1.73m\\ Filtrat ion Rate (eGFR) = EGFRNA) S\\2 Reference Inter vals Decision Points for 18 years and older and average body ma ss: >= 60 Does not exc lude kidney disease. 30 - 59 Suggests modera te chronic kidney disease and indicat es the need for furthe r investigation including asses sment of proteinuria and cardiovascular factors. < 30 Usually in dicates a need for refe rral for assessment and management of c hronic kidney failure. Critical values were called to Nanda Jesus RN by [id number] on 03/21/20 00:01 . Results were read back by Nanda Jesus RN.[id number] 00:01:00 Test Item Value Reference Range Interpretation Comments Lipase (test code = LIPA) 204 U/L 8-223 CBC WITH AUTO [id number] 23:45:00 Test Item Value Reference Range Interpretation Comments WBC (test code = 20.88 4.80-10.80 H WBC) 10\\S\\3/ul RBC (test code = 4.53 10\\S\\6/ul 4.70-6.10 L RBC) Hemoglobin (test 14.6 gm/dl 14.0-18.0 code = HGB) Hematocrit (test 41.1 % 42.0-50.0 L code = HCT) MCV (test code = 90.7 fL 80.0-94.0 MCV) MCH (test code = 32.2 pg 27.0-31.0 H MCH) MCHC (test code = 35.5 gm/dl 33.0-37.0 MCHC) RDW (test code = 12.3 % 11.5-14.5 RDWVC) Platelet (test code 332 10\\S\\3/ul 130-400 = PLT) MPV (test code = 9.4 fL 7.4-10.4 A "NOT MEASUR ED" MPV) RESULTS ARE DISPLAYED WHEN THE INSTRUMENT HAS A SUPPRESSED OR UNREPORTABLE RE SULT. THIS WILL MOST OFTEN HAPPEN WI TH THE MPV WHEN TH ERE IS AN ABNORMAL PLATELET DISTRIBUTION DU E TO A CRITICAL LOW VALUE OR PLATELET CLUMPING. THE RDW MAY BE SUPPRESS ED IF THERE ARE MULTI PLE PEAKS PRESENT O N THE RBC HISTOGRAM. IN THIS CASE, A ALEXANDRO MONCADA REVIEW OF THE S LIDE WILL BE PERFORM ED, AND RBC MORPHOL OGY WILL BE NOTED O N THE REPORT. NE% (test code = NE) 77.9 % 42.0-75.0 H LY% (test code = LY) 13.0 % 13.0-42.0 MO% (test code = MO) 7.2 % 4.0-14.0 EO% (test code = EO) 0.7 % 1.0-5.0 L BA% (test code = BA) 0.7 % 0.0-3.0 IG% (test code = 0.5 % 0.0-0.4 H IG%) Neutrophils (test 78 10\\S\\3/ul 42-75 H No previou s value code = NEUTR) was reported. A value of 78 was entered by [id number] on 03/20/2020 2 3:45 Lymphocytes (test 15 % 13-42 No previou s value code = LYMPH) was reported. A value of 15 was entered by [id number] on 03/20/2020 2 3:45 Monocytes (test code 6 % 4-14 No prev ious value = MONOS) was reported. A value of 6 was entered by [id number] on 03/20/2020 2 3:45 Eosinophils (test 1 % 1-3 No previou s value code = EOS) was reported. A value of 1 was entered by [id number] on 03/20/2020 2 3:45 CBC WITH AUTO [id number] 07:36:00 Test Item Value Reference Range Interpretation Comments WBC (test code = 25.68 4.80-10.80 H WBC) 10\\S\\3/ul RBC (test code = 4.72 10\\S\\6/ul 4.70-6.10 RBC) Hemoglobin (test 15.5 gm/dl 14.0-18.0 code = HGB) Hematocrit (test 42.6 % 42.0-50.0 code = HCT) MCV (test code = 90.3 fL 80.0-94.0 MCV) MCH (test code = 32.8 pg 27.0-31.0 H MCH) MCHC (test code = 36.4 gm/dl 33.0-37.0 MCHC) RDW (test code = 12.4 % 11.5-14.5 RDWVC) Platelet (test code 352 10\\S\\3/ul 130-400 = PLT) MPV (test code = 9.7 fL 7.4-10.4 A "NOT MEASUR ED" MPV) RESULTS ARE DISPLAYED WHEN THE INSTRUMENT HAS A SUPPRESSED OR UNREPORTABLE RE SULT. THIS WILL MOST OFTEN HAPPEN WI TH THE MPV WHEN TH ERE IS AN ABNORMAL PLATELET DISTRIBUTION DU E TO A CRITICAL LOW VALUE OR PLATELET CLUMPING. THE RDW MAY BE SUPPRESS ED IF THERE ARE MULTI PLE PEAKS PRESENT O N THE RBC HISTOGRAM. IN THIS CASE, A MA NUAL REVIEW OF THE S LIDE WILL BE PERFORM ED, AND RBC MORPHOL OGY WILL BE NOTED O N THE REPORT. NE% (test code = NE) 85.1 % 42.0-75.0 H LY% (test code = LY) 7.4 % 13.0-42.0 L MO% (test code = MO) 6.0 % 4.0-14.0 EO% (test code = EO) 0.1 % 1.0-5.0 L BA% (test code = BA) 0.5 % 0.0-3.0 IG% (test code = 0.9 % 0.0-0.4 H IG%) Atypical Lymphocyte 1 % No previ ous value (test code = ATPLYM) was rep orted. A value of 1 was entered by [employer] on 02/04/2020 0 7:36 Neutrophils (test 88 10\\S\\3/ul 42-75 H No previou s value code = NEUTR) was reported. A value of 88 was entered by [employer] on 02/04/2020 0 7:36 Lymphocytes (test 7 % 13-42 L No previou s value code = LYMPH) was reported. A value of 7 was entered by [employer] on 02/04/2020 0 7:36 Monocytes (test code 4 % 4-14 No prev ious value = MONOS) was reported. A value of 4 was entered by [employer] on 02/04/2020 0 7:36 DRUG SCREEN [id number] 00:44:00 Test Item Value Reference Range Interpretation Comments PH (test code = 8.0 UPH) Specific [place] 1.015 (test code = USPGR) FT (test code = Negative AMPHET) (qualifier value) FT (test code = Negative ALVINO) (qualifier value) FT (test code = Negative BENZO) (qualifier value) FT (test code = Negative GABI) (qualifier value) FT (test code = Negative MTD) (qualifier value) FT (test code = Negative OPIAT) (qualifier value) FT (test code = Negative The followin g table PCP) (qualifier provides an value) interpretive gu elmer for the Drugs of Ab use ran on the Siemens [place] analyzer listed there in: [place] < 1000 ng/ml = Negative Barbituates < 200 ng/ml = Negat ileana Benzodiazapines < 200 ngml = Negat ileana Cocaine < 300 ng/ml = Negat ileana Methadone < 300 ng/ml = Negat ileana Opiate < 300 ng/ml = Negat ileana PCP < 25 ng/ml = Nega tive THC < 50 ng/ml = Negat ileana Results equal t o or greater than th e above cut-off values = Presumptive Pos itive. Confirmation of Presumptive Pos itive results are elliot ilable upon request. Cannabinoids, Positive THC (test code = THC) URINALYSIS WITH [id number] 00:35:00 Test Item Value Reference Range Interpretation Comments Color (test code = Yellow UCOLR) Clarity (test code = Sl Cloudy UCLAR) Glucose (test code = 100 NEGATIVE A UGLUC) Bilirubin (test code = NEGATIVE NEGATIVE N UBILI) Ketones (test code = 15 NEGATIVE A UKET) Specific [place] (test 1.015 1.005-1.030 A code = USPGR) Blood (test code = UBLD) NEGATIVE NEGATIVE N PH (test code = UPH) 8.0 4.5-8.0 A Protein (test code = NEGATIVE NEGATIVE N UPROT) Urobilinogen (test code 0.2 >0.2 N = U UROB) Nitrite (test code = NEGATIVE NEGATIVE N UNITR) Leukocyte Esterase (test NEGATIVE NEGATIVE N code = ULEUK) WBC (test code = WBCUR) 0-1 0-5 A RBC (test code = RBCUR) None Seen 0-5 A Epithial Cells (test None Seen 0-10 A code = U EPI) Mucous (test code = Small None Seen A UMUC) Bacteria (test code = Trace None Seen,Trace N UBACT) Crystals Urine (test Few Amorphous None Seen A code = URCRYS) Sediment CT ABDOMEN/PELVIS [id number] 00:22:44EXAM: CT Abdomen and Pelvis WITH contrastINDICATION: [id number]: Abdominal painCOMPARISON: December 19, 2019 CT abdomen.TECHNIQUE: Abdomen and pelvis were scanned utilizing a multidetector helicalscanner from the lung base to the pubic symphysis after administration of IVcontrast. Coronal and sagittal reformations were obtained. Routine protocol wasperformed. Scan was performed when during portal venous phase.IV CONTRAST: 100 mL of Isovue 300ORAL CONTRAST: NoneCOMPLICATIONS: NoneRADIATION DOSE:Total DLP: 275 mGy*cmEstimated effective dose: (DLP x 0.015 x size factor) mSvCTDIvol has been reviewed. It isbelow the limits set by the RadiationProtocol Committee (RPC).Dose modulation, iterative reconstruction, and/or weight based adjustmentsof the mA/kV was utilized to reduce the radiation dose to as low as reasonablyachievable.FINDINGS:LINES and TUBES: None.LOWER THORAX: UnremarkableHEPATOBILIARY:No focal hepatic lesions. No biliary ductal dilation.GALLBLADDER: No radio-opaque stones or sludge.No wall thickening.SPLEEN: No splenomegaly.PANCREAS: No focal masses or ductal dilatation.ADRENALS: No adrenal nodulesKIDNEYS/URETERS: Kidneys enhance symmetrically. No hydronephrosis. No cystic orsolid mass lesions. No stones.GI TRACT: The colon is mostly empty with mild pancolonic wall thicken ing.Appendix is normal.PELVIC ORGANS/BLADDER: Unremarkable.LYMPH NODES: No lymphadenopathy.VESSELS: Unremarkable.PERITONEUM / RETROPERITONEUM: No free air or fluid.BONES: Bilateral L5 inferior parsdefects.SOFT TISSUES: Unremarkable.IMPRESSION:The colon is mostly empty with mild pancolonic wall thi ckening, similar comparedto December 19, 2019, possibly due to colitis.This final report was electronically signed by Dr Jony Barkley DO 02/04/202012:16 AMDictated By: JONY BARKLEYDate: 02/04/2020 00:[id number] 22:57:00 Test Item Value Reference Range Interpretation Comments Glucose (test code 194 mg/dl 75-110 H = GLU) BUN (test code = 8.0 mg/dl 6.0-17.0 BUN) Creatinine (test 1.0 mg/dl 0.4-1.2 code = CREA) Sodium (test code = 136 mmol/l 137-145 L NA) Potassium (test 2.7 mmol/l 3.5-5.0 LL code = K) Chloride (test code 104 mmol/l 98-107 = CL) CO2 (test code = 21 mmol/l 22-30 L CO2) Calcium (test code 9.8 mg/dl 8.4-10.2 = CALC) T Protein (test 8.5 gm/dl 5.1-8.7 code = TP) Albumin (test code 4.6 gm/dl 3.5-4.6 = ALB) A/G Ratio (test 1.2 % 1.1-2.2 code = AGRAT) AST (SGOT) (test 14 U/L 11-36 code = AST) ALT (SGPT) (test 15 U/L 11-40 code = ALT) Alkaline Phos (test 92 U/L 47-114 code = ALKP) Total Bilirubin 0.5 mg/dl 0.2-1.2 (test code = TBIL) Globulin (test code 3.9 gm/dl 2.3-3.5 H = GLOBU) Calcium, Corrected 9.3 mg/dl 8.4-10.2 Various f ormulas exist (test code = for corrected s martin CALCCORR) calcium results , each yielding differ ent values. This corrected resul t was based on the fo rmula: Corrected Calci um = SerumCalcium + [0.8 * ( 4 - SerumAlbu min)] EGFR if >60 [place]ian (test code mL/min/1.73m\\ = EGFRAA) S\\2 EGFR if Non- >60 Estimate d Glomerular [place] (test code mL/min/1.73m\\ Filtrat ion Rate (eGFR) = EGFRNA) S\\2 Reference Inter vals Decision Points for 18 years and older and average body ma ss: >= 60 Does not exc lude kidney disease. 30 - 59 Suggests modera te chronic kidney disease and indicat es the need for furthe r investigation including asses sment of proteinuria and cardiovascular factors. < 30 Usually in dicates a need for refe rral for assessment and management of c hronic kidney failure. Critical values were called to RICARDO PORTERRN/ER@[email or web address] by [id number] on 02/03/20 22:57 CDT. Results were read back by RICARDO PORTERRN/ER@[email or web address].[id number] 22:57:00 Test Item Value Reference Range Interpretation Comments Lipase (test code = LIPA) 150 U/L 8-223 CT ABDOMEN/PELVIS [id number] 22:55:28EXAM: CT Abdomen and Pelvis WITH contrastINDICATION: [id number]: Abdominal painCOMPARISON: CT dated March 21, 2019TECHNIQUE: Abdomen and pelvis were scanned utilizing a multidetector helicalscanner from the lung base to the pubic symphysis after administration of IVcontrast. Coronal and sagittal reformations were obtained. Routine protocol wasperformed. Scan was performed when during portal venous phase.IV CONTRAST: 100 mL of Isovue 300ORAL CONTRAST: NoneCOMPLICATIONS: NoneRADIATION DOSE:Total DLP:355 mGy*cmEstimated effective dose: (DLP x 0.015 x size factor) mSvCTDIvol has been reviewed. It is below the limits set by the RadiationProtocol Committee (RPC).FINDINGS:LINES and TUBES: None.LOWER THORAX: UnremarkableHEPATOBILIARY: Hepatomegaly. No focal hepatic lesions. No biliary ductaldilation.GALLBLADDER: No radio-opaque stones or sludge. No wall thickening.SPLEEN: No splenomegaly.PANCREAS: No focal masses or ductal dilatation.ADRENALS: Stable approximately 1 cm left adrenal nodule. No right adrenalmodules.KIDNEYS/URETERS: Kidneys enhance symmetrically. No hydronephrosis. No cystic orsolid mass lesions. No stones.GI TRACT: No abnormal distention or evidence of bowel obstruction. Mild colonicwall thickening. Appendix is normal.PELVIC ORGANS/BLADDER: Unremarkable.LYMPH NODES: No lymphadenopathy.VESSELS: Unremarkable.PERITONEUM / RETROPERITONEUM: No free air or fluid.BONES: Again seen bilateral L5 pars defects without spondylolisthesis. Unchangedleft iliac sclerotic focus, likely a bone island.SOFT TISSUES: Unremarkable.IMPRESSION:1. Mild colonic wall thickening, could be due to underdistention versus colitisin the appropriate clinical context. Otherwise, no acute inflammatory process inthe abdomen/pelvis.This final report was electronically signed by Dr Earl Lemus MD 12/19/201910:49 PMDictated By: EARL LEMUSDate: 12/19/2019 22:49CBC WITH AUTO [id number] 21:41:00 Test Item Value Reference Range Interpretation Comments WBC (test code = 28.73 4.80-10.80 H WBC) 10\\S\\3/ul RBC (test code = 4.31 10\\S\\6/ul 4.70-6.10 L RBC) Hemoglobin (test 14.0 gm/dl 14.0-18.0 code = HGB) Hematocrit (test 37.8 % 42.0-50.0 L code = HCT) MCV (test code = 87.7 fL 80.0-94.0 MCV) MCH (test code = 32.5 pg 27.0-31.0 H MCH) MCHC (test code = 37.0 gm/dl 33.0-37.0 MCHC) RDW (test code = 12.1 % 11.5-14.5 RDWVC) Platelet (test code 324 10\\S\\3/ul 130-400 = PLT) MPV (test code = 9.8 fL 7.4-10.4 A "NOT MEASUR ED" MPV) RESULTS ARE DISPLAYED WHEN THE INSTRUMENT HAS A SUPPRESSED OR UNREPORTABLE RE SULT. THIS WILL MOST OFTEN HAPPEN WI TH THE MPV WHEN TH ERE IS AN ABNORMAL PLATELET DISTRIBUTION DU E TO A CRITICAL LOW VALUE OR PLATELET CLUMPING. THE RDW MAY BE SUPPRESS ED IF THERE ARE MULTI PLE PEAKS PRESENT O N THE RBC HISTOGRAM. IN THIS CASE, A MA NUAL REVIEW OF THE S LIDE WILL BE PERFORM ED, AND RBC MORPHOL OGY WILL BE NOTED O N THE REPORT. NE% (test code = NE) 89.0 % 42.0-75.0 H LY% (test code = LY) 3.5 % 13.0-42.0 L MO% (test code = MO) 6.4 % 4.0-14.0 EO% (test code = EO) 0.0 % 1.0-5.0 L BA% (test code = BA) 0.3 % 0.0-3.0 IG% (test code = 0.8 % 0.0-0.4 H IG%) Bands (test code = 1 % 0-2 No previo us value BANDM) was reported. A value of 1 was entered by [id number] on 12/19/2019 2 1:41 Neutrophils (test 80 10\\S\\3/ul 42-75 H No previou s value code = NEUTR) was reported. A value of 80 was entered by [id number] on 12/19/2019 2 1:41 Lymphocytes (test 7 % 13-42 L No previou s value code = LYMPH) was reported. A value of 7 was entered by [id number] on 12/19/2019 2 1:41 Monocytes (test code 12 % 4-14 No prev ious value = MONOS) was reported. A value of 12 was entered by [id number] on 12/19/2019 2 1:41 [id number] 21:16:00 Test Item Value Reference Range Interpretation Comments Lipase (test code = LIPA) 98 U/L 8-223 [id number] 21:16:00 Test Item Value Reference Range Interpretation Comments Glucose (test code 162 mg/dl 75-110 H = GLU) BUN (test code = 9.0 mg/dl 6.0-17.0 BUN) Creatinine (test 0.9 mg/dl 0.4-1.2 code = CREA) Sodium (test code = 138 mmol/l 137-145 NA) Potassium (test 3.4 mmol/l 3.5-5.0 L code = K) Chloride (test code 105 mmol/l 98-107 = CL) CO2 (test code = 22 mmol/l 22-30 CO2) Calcium (test code 9.6 mg/dl 8.4-10.2 = CALC) T Protein (test 8.5 gm/dl 5.1-8.7 code = TP) Albumin (test code 4.6 gm/dl 3.5-4.6 = ALB) A/G Ratio (test 1.2 % 1.1-2.2 code = AGRAT) AST (SGOT) (test 17 U/L 11-36 code = AST) ALT (SGPT) (test 18 U/L 11-40 code = ALT) Alkaline Phos (test 89 U/L 47-114 code = ALKP) Total Bilirubin 0.7 mg/dl 0.2-1.2 (test code = TBIL) Globulin (test code 3.9 gm/dl 2.3-3.5 H = GLOBU) Calcium, Corrected 9.1 mg/dl 8.4-10.2 Various f ormulas exist (test code = for corrected s martin CALCCORR) calcium results , each yielding differ ent values. This corrected resul t was based on the fo rmula: Corrected Calci um = SerumCalcium + [0.8 * ( 4 - SerumAlbu min)] EGFR if >60 Maur[place]ian (test code mL/min/1.73m\\ = EGFRAA) S\\2 EGFR if Non- >60 Estimate d Glomerular [place]ian (test code mL/min/1.73m\\ Filtrat ion Rate (eGFR) = EGFRNA) S\\2 Reference Inter vals Decision Points for 18 years and older and average body ma ss: >= 60 Does not exc lude kidney disease. 30 - 59 Suggests modera te chronic kidney disease and indicat es the need for furthe r investigation including asses sment of proteinuria and cardiovascular factors. < 30 Usually in dicates a need for refe rral for assessment and management of c hronic kidney failure. URINALYSIS WITH [id number] 21:10:00 Test Item Value Reference Range Interpretation Comments Color (test code = Yellow UCOLR) Clarity (test code = Cloudy UCLAR) Glucose (test code = NEGATIVE NEGATIVE N UGLUC) Bilirubin (test code = NEGATIVE NEGATIVE N UBILI) Ketones (test code = 15 NEGATIVE A UKET) Specific [place] (test 1.025 1.005-1.030 A code = USPGR) Blood (test code = UBLD) NEGATIVE NEGATIVE N PH (test code = UPH) 7.0 4.5-8.0 A Protein (test code = TRACE NEGATIVE A UPROT) Urobilinogen (test code 1.0 >0.2 A = U UROB) Nitrite (test code = NEGATIVE NEGATIVE N UNITR) Leukocyte Esterase (test NEGATIVE NEGATIVE N code = ULEUK) WBC (test code = WBCUR) 3-5 0-5 A RBC (test code = RBCUR) None Seen 0-5 A Epithial Cells (test None Seen 0-10 A code = U EPI) Mucous (test code = Trace None Seen A UMUC) Bacteria (test code = Trace None Seen,Trace N UBACT) Crystals Urine (test Many Amorphous None Seen A code = URCRYS) Sediment URINALYSIS WITH [id number] 15:25:00 Test Item Value Reference Range Interpretation Comments Color (test code = UCOLR) Yellow Clarity (test code = UCLAR) Clear Glucose (test code = UGLUC) NEGATIVE NEGATIVE N Bilirubin (test code = UBILI) NEGATIVE NEGATIVE N Ketones (test code = UKET) NEGATIVE NEGATIVE N Specific [place] (test code = 1.020 1.005-1.030 A USPGR) Blood (test code = UBLD) NEGATIVE NEGATIVE N PH (test code = UPH) 6.5 4.5-8.0 A Protein (test code = UPROT) NEGATIVE NEGATIVE N Urobilinogen (test code = U UROB) 1.0 >0.2 A Nitrite (test code = UNITR) NEGATIVE NEGATIVE N Leukocyte Esterase (test code = NEGATIVE NEGATIVE N ULEUK) WBC (test code = WBCUR) None Seen 0-5 A RBC (test code = RBCUR) None Seen 0-5 A Epithial Cells (test code = U EPI) 0-10 0-10 N Mucous (test code = UMUC) Moderate None Seen A Bacteria (test code = UBACT) Trace None Seen,Trace N URINALYSIS WITH [id number] 01:32:00 Test Item Value Reference Range Interpretation Comments Color (test code = UCOLR) Yellow Clarity (test code = UCLAR) Clear Glucose (test code = UGLUC) NEGATIVE NEGATIVE N Bilirubin (test code = UBILI) NEGATIVE NEGATIVE N Ketones (test code = UKET) TRACE NEGATIVE A Specific [place] (test code = 1.015 1.005-1.030 A USPGR) Blood (test code = UBLD) NEGATIVE NEGATIVE N PH (test code = UPH) 7.0 4.5-8.0 A Protein (test code = UPROT) 100 NEGATIVE A Urobilinogen (test code = U UROB) 0.2 >0.2 N Nitrite (test code = UNITR) NEGATIVE NEGATIVE N Leukocyte Esterase (test code = NEGATIVE NEGATIVE N ULEUK) WBC (test code = WBCUR) 0-1 0-5 A RBC (test code = RBCUR) None Seen 0-5 A Epithial Cells (test code = U EPI) None Seen 0-10 A Mucous (test code = UMUC) None Seen None Seen N Bacteria (test code = UBACT) Trace None Seen,Trace N DRUG SCREEN [id number] 01:32:00 Test Item Value Reference Range Interpretation Comments FT (test code Negative = AMPHET) (qualifier value) FT (test code Negative = ALVINO) (qualifier value) FT (test code Negative = BENZO) (qualifier value) FT (test code Negative = GABI) (qualifier value) FT (test code Negative = MTD) (qualifier value) FT (test code Negative = OPIAT) (qualifier value) FT (test code Negative The following table = PCP) (qualifier value) provides a n interpretive guide for the D rugs of Abuse ran on Siemens Windsor analyzer listed there in: Amphetamines < 1000 ng/ml = Negati ve Barbituates < 200 ng/ml = Negati ve Benzodiazapines < 200 ngml = Negati ve Cocaine < 300 ng/ml = Negati ve Methadone < 300 ng/ml = Negati ve Opiate < 300 ng/ml = Negati ve PCP < 25 ng/ml = Negati ve THC < 50 ng/ml = Negati ve Results equal t o or greater than e above cut-off values = Presumptive Pos itive. Confirmation of Presumptive Pos itive results are elliot ilable upon request. Cannabinoids, Positive THC (test code = THC) SALICYLATES (Aspirin)2019-05-02 01:11:00 Test Item Value Reference Range Interpretation Comments Salicylate (test code 4.0 mg/dl 0.0-30.0 Salicy lates Reference = SALI) Ranges: Therap eutic 15 - 30 mg/dl Toxicity >30 mg/dl Leth al >70 mg/dl [id number] 01:07:00 Test Item Value Reference Range Interpretation Comments Glucose (test code 87 mg/dl 75-110 = GLU) BUN (test code = 6.0 mg/dl 6.0-17.0 BUN) Creatinine (test 0.7 mg/dl 0.4-1.2 code = CREA) Sodium (test code = 143 mmol/l 137-145 NA) Potassium (test 4.1 mmol/l 3.5-5.0 code = K) Chloride (test code 112 mmol/l 98-107 H = CL) CO2 (test code = 29 mmol/l 22-30 CO2) Calcium (test code 8.9 mg/dl 8.4-10.2 = CALC) T Protein (test 7.6 gm/dl 5.1-8.7 code = TP) Albumin (test code 4.2 gm/dl 3.5-4.6 = ALB) A/G Ratio (test 1.2 % 1.1-2.2 code = AGRAT) AST (SGOT) (test 15 U/L 11-36 code = AST) ALT (SGPT) (test 20 U/L 11-40 code = ALT) Alkaline Phos (test 80 U/L 47-114 code = ALKP) Total Bilirubin 0.2 mg/dl 0.2-1.2 (test code = TBIL) Globulin (test code 3.4 gm/dl 2.3-3.5 = GLOBU) Calcium, Corrected 8.7 mg/dl 8.4-10.2 Various f ormulas exist (test code = for corrected s martin CALCCORR) calcium results , each yielding differ ent values. This corrected resul t was based on the fo rmula: Corrected Calci um = SerumCalcium + [0.8 * ( 4 - SerumAlbu min)] EGFR if >60 Maur[place]ian (test code mL/min/1.73m\\ = EGFRAA) S\\2 EGFR if Non- >60 Estimate d Glomerular [place] (test code mL/min/1.73m\\ Filtrat ion Rate (eGFR) = EGFRNA) S\\2 Reference Inter vals Decision Points for 18 years and older and average body ma ss: >= 60 Does not exc lude kidney disease. 30 - 59 Suggests modera te chronic kidney disease and indicat es the need for furthe r investigation including asses sment of proteinuria and cardiovascular factors. < 30 Usually in dicates a need for refe rral for assessment and management of c hronic kidney failure. TSH (Ultra Sensitive)2019-05-02 01:07:00 Test Item Value Reference Range Interpretation Comments TSH (test code = TSH) 2.41 mIU/L 0.47-4.68 ACETAMINOPHEN (Tyenol)2019-05-02 01:06:00 Test Item Value Reference Range Interpretation Comments Acetaminophen (test code = ACET) <2 ug/ml 10-25 L ALCOHOL, [id number] 01:04:00 Test Item Value Reference Range Interpretation Comments Alcohol % (test code = 0.09 % 0.00-0.00 H Nguyễn ol % 0.00 - 0.10 ALCPC) Sub-clinical 0.11 - 0.20 Emotion al Instability 0.21 - 0.30 Confusion 0.31 - 0.40 Stupor 0.41 - 0.50 Co ma >.50 Fa natanael CBC WITH AUTO [id number] 00:23:00 Test Item Value Reference Range Interpretation Comments WBC (test code = 12.90 4.80-10.80 H WBC) 10\\S\\3/ul RBC (test code = 4.26 10\\S\\6/ul 4.70-6.10 L RBC) Hemoglobin (test 13.7 gm/dl 14.0-18.0 L code = HGB) Hematocrit (test 40.0 % 42.0-50.0 L code = HCT) MCV (test code = 93.9 fL 80.0-94.0 MCV) MCH (test code = 32.2 pg 27.0-31.0 H MCH) MCHC (test code = 34.3 gm/dl 33.0-37.0 MCHC) RDW (test code = 13.0 % 11.5-14.5 RDWVC) Platelet (test code 313 10\\S\\3/ul 130-400 = PLT) MPV (test code = 9.3 fL 7.4-10.4 A "NOT MEASUR ED" MPV) RESULTS ARE DIS PLAYED WHEN THE INSTRU MENT HAS A SUPPRESSE D OR UNREPORTABLE RE SULT. THIS WILL MOST OFTEN HAPPEN WITH THE MPV WHEN THERE IS A N ABNORMAL PLATEL ET DISTRIBUTION DU E TO A CRITICAL LOW VA LUE OR PLATELET CLUMPI NG. THE RDW MAY BE SUPPRESSED IF T HERE ARE MULTIPLE PE AKS PRESENT ON THE RBC HISTOGRAM. IN THIS CASE, A MANUAL REVIEW OF THE SLIDE WI LL BE PERFORMED, AND RBC MORPHOLOGY WILL BE NOTED ON THE RE PORT. NE% (test code = 71.3 % 42.0-75.0 NE) LY% (test code = 17.5 % 13.0-42.0 LY) MO% (test code = 7.8 % 4.0-14.0 MO) EO% (test code = 2.0 % 1.0-5.0 EO) BA% (test code = 0.9 % 0.0-3.0 BA) IG% (test code = 0.5 % 0.0-0.4 H IG%) CULTURE, ANAEROBE [id number] 07:45:00LEFT ACSpecimen: BloodCollected: 03/21/2019 10:55 Status: Final Last Updated: 03/27/2019 07:45 (1) LEFT AC Culture Result (Final) (Final) No Growth After 5 DaysCULTURE, [id number] 07:45:00LEFT ACSpecimen: BloodCollected: 03/21/2019 10:55 Status: Final Last Updated: 03/27/2019 07:45 (1) LEFT AC Culture Result (Final) (Final) No Growth After 5 DaysCBC WITH AUTO [id number] 14:15:00 Test Item Value Reference Range Interpretation Comments WBC (test code = 16.82 4.80-10.80 H WBC) 10\\S\\3/ul RBC (test code = 4.45 10\\S\\6/ul 4.70-6.10 L RBC) Hemoglobin (test 14.0 gm/dl 14.0-18.0 code = HGB) Hematocrit (test 41.6 % 42.0-50.0 L code = HCT) MCV (test code = 93.5 fL 80.0-94.0 MCV) MCH (test code = 31.5 pg 27.0-31.0 H MCH) MCHC (test code = 33.7 gm/dl 33.0-37.0 MCHC) RDW (test code = 12.8 % 11.5-14.5 RDWVC) Platelet (test code 295 10\\S\\3/ul 130-400 = PLT) MPV (test code = 9.5 fL 7.4-10.4 A "NOT MEASUR ED" MPV) RESULTS ARE DISPLAYED WHEN THE INSTRUMENT HAS A SUPPRESSED OR UNREPORTABLE RE SULT. THIS WILL MOST OFTEN HAPPEN WI TH THE MPV WHEN TH ERE IS AN ABNORMAL PLATELET DISTRIBUTION DU E TO A CRITICAL LOW VALUE OR PLATELET CLUMPING. THE RDW MAY BE SUPPRESS ED IF THERE ARE MULTI PLE PEAKS PRESENT O N THE RBC HISTOGRAM. IN THIS CASE, A ALEXANDRO MONCADA REVIEW OF THE S LIDE WILL BE PERFORM ED, AND RBC MORPHOL OGY WILL BE NOTED O N THE REPORT. NE% (test code = NE) 84.1 % 42.0-75.0 H LY% (test code = LY) 9.2 % 13.0-42.0 L MO% (test code = MO) 5.4 % 4.0-14.0 EO% (test code = EO) 0.1 % 1.0-5.0 L BA% (test code = BA) 0.3 % 0.0-3.0 IG% (test code = 0.9 % 0.0-0.4 H IG%) Neutrophils (test 86 10\\S\\3/ul 42-75 H No previou s value code = NEUTR) was reported. A value of 86 was entered by [id number] on 03/21/2019 1 4:14 Lymphocytes (test 8 % 13-42 L No previou s value code = LYMPH) was reported. A value of 8 was entered by [id number] on 03/21/2019 1 4:14 Monocytes (test code 6 % 4-14 No prev ious value = MONOS) was reported. A value of 6 was entered by [id number] on 03/21/2019 1 4:14 CT ABDOMEN/PELVIS W/[id number] 12:14:27CT of the abdomen and pelvis with contrast:History: Abdominal tendernessMultidetector CT of the abdomen and pelvis was performed following intravenousinjection of 100 mL of Isovue-300. Dose reduction technique was employed usingautomated exposure control and adjustment of mA and/or kV according to patientsize. Total DLP 371 mGy-cm.The visualized lung bases are unremarkable.The liver, spleen, pancreas, gallbladder, adrenals, kidneys and abdominal aortaappear normal.The bladder is unremarkable. The leopoldo endix appears normal. No inflammatorychanges are noted. The bowel loops as visualized appear within normal limits.There is no ascites or lymphadenopathy. Bilateral L5 spondylolysis is notedwithout spondylolisthesis. There are no acute bony abnormalities.Impression:1. No acute abnormality of the abdomen or pelvis.2. Bilateral L5 spondylolysis without spondylolisthesis.This final report was electronically signed by Dr Hari Perez MD 03/21/201912:08 PMDictated By: HARI PEREZDate: 03/21/2019 12:08LACTIC ACID [id number] 11:40:00 Test Item Value Reference Range Interpretation Comments LACTATE (test code = LAC) 2.0 mmol/l 0.7-2.0 LEFT ACCBC WITH AUTO [id number] 10:43:00 Test Item Value Reference Range Interpretation Comments WBC (test code = 21.89 4.80-10.80 H WBC) 10\\S\\3/ul RBC (test code = 4.86 10\\S\\6/ul 4.70-6.10 RBC) Hemoglobin (test 15.6 gm/dl 14.0-18.0 code = HGB) Hematocrit (test 44.5 % 42.0-50.0 code = HCT) MCV (test code = 91.6 fL 80.0-94.0 MCV) MCH (test code = 32.1 pg 27.0-31.0 H MCH) MCHC (test code = 35.1 gm/dl 33.0-37.0 MCHC) RDW (test code = 12.8 % 11.5-14.5 RDWVC) Platelet (test code 335 10\\S\\3/ul 130-400 = PLT) MPV (test code = 9.9 fL 7.4-10.4 A "NOT MEASUR ED" MPV) RESULTS ARE DISPLAYED WHEN THE INSTRUMENT HAS A SUPPRESSED OR UNREPORTABLE RE SULT. THIS WILL MOST OFTEN HAPPEN WI TH THE MPV WHEN TH ERE IS AN ABNORMAL PLATELET DISTRIBUTION DU E TO A CRITICAL LOW VALUE OR PLATELET CLUMPING. THE RDW MAY BE SUPPRESS ED IF THERE ARE MULTI PLE PEAKS PRESENT O N THE RBC HISTOGRAM. IN THIS CASE, A ALEXANDRO MONCADA REVIEW OF THE S LIDE WILL BE PERFORM ED, AND RBC MORPHOL OGY WILL BE NOTED O N THE REPORT. NE% (test code = NE) 84.4 % 42.0-75.0 H LY% (test code = LY) 9.0 % 13.0-42.0 L MO% (test code = MO) 5.2 % 4.0-14.0 EO% (test code = EO) 0.0 % 1.0-5.0 L BA% (test code = BA) 0.5 % 0.0-3.0 IG% (test code = 0.9 % 0.0-0.4 H IG%) Neutrophils (test 87 10\\S\\3/ul 42-75 H No previou s value code = NEUTR) was reported. A value of 87 was entered by [id number] on 03/21/2019 1 0:43 Lymphocytes (test 9 % 13-42 L No previou s value code = LYMPH) was reported. A value of 9 was entered by [id number] on 03/21/2019 1 0:43 Monocytes (test code 4 % 4-14 No prev ious value = MONOS) was reported. A value of 4 was entered by [id number] on 03/21/2019 1 0:43 DRUG SCREEN [id number] 10:21:00 Test Item Value Reference Range Interpretation Comments FT (test code = Negative AMPHET) (qualifier value) FT (test code = Negative ALVINO) (qualifier value) FT (test code = Negative BENZO) (qualifier value) FT (test code = Negative GABI) (qualifier value) FT (test code = Negative MTD) (qualifier value) FT (test code = Negative OPIAT) (qualifier value) FT (test code = Negative The followin g table PCP) (qualifier provides an value) interpretive gu elmer for the Drugs of Ab use ran on the Siemens Windsor analyzer listed there in: Amp[place] mines < 1000 ng/ml = Negative Barbituates < 200 ng/ml = Negat ileana Benzodiazapines < 200 ngml = Negat ileana Cocaine < 300 ng/ml = Negat ileana Methadone < 300 ng/ml = Negat ileana Opiate < 300 ng/ml = Negat ileana PCP < 25 ng/ml = Nega tive THC < 50 ng/ml = Negat ileana Results equal t o or greater than th e above cut-off values = Presumptive Pos itive. Confirmation of Presumptive Pos itive results are elliot ilable upon request. Cannabinoids, Positive THC (test code = THC) PH (test code = 8.5 No previous value was UPH) reported. A lillian ue of 8.5 was entered by [id number] on 03/07 10:21 Specific [place] 1.010 No previous value was (test code = reported. A lillian ue of USPGR) 1.010 was enter ed by [id number] on 03/07 10:21 URINALYSIS WITH [id number] 10:01:00 Test Item Value Reference Range Interpretation Comments Color (test code = UCOLR) Yellow Clarity (test code = UCLAR) Clear Glucose (test code = UGLUC) 250 NEGATIVE A Bilirubin (test code = UBILI) NEGATIVE NEGATIVE N Ketones (test code = UKET) >=80 NEGATIVE A Specific [place] (test code = 1.010 1.005-1.030 A USPGR) Blood (test code = UBLD) NEGATIVE NEGATIVE N PH (test code = UPH) 8.5 4.5-8.0 A Protein (test code = UPROT) 30 NEGATIVE A Urobilinogen (test code = U UROB) 0.2 >0.2 N Nitrite (test code = UNITR) NEGATIVE NEGATIVE N Leukocyte Esterase (test code = NEGATIVE NEGATIVE N ULEUK) WBC (test code = WBCUR) 0-1 0-5 A RBC (test code = RBCUR) 0-1 0-5 A Epithial Cells (test code = U EPI) 0-1 0-10 A Mucous (test code = UMUC) None Seen None Seen N Bacteria (test code = UBACT) None Seen None Seen,Trace N Crystals Urine (test code = URCRYS) None Seen None Seen N ALCOHOL, [id number] 09:03:00 Test Item Value Reference Range Interpretation Comments Alcohol % (test code = 0 % 0.00-0.00 N Nguyễn ol % 0.00 - 0.10 ALCPC) Sub-clinical 0.11 - 0.20 Emotional Instability 0.21 - 0.30 Confusion 0.31 - 0.40 Stupor 0.41 - 0.50 Coma >.50 Fatal [id number] 09:03:00 Test Item Value Reference Range Interpretation Comments CPK (test code = CPK) 198 U/L 30-135 H [id number] 09:02:00 Test Item Value Reference Range Interpretation Comments Glucose (test code 144 mg/dl 75-110 H = GLU) BUN (test code = 11.0 mg/dl 6.0-17.0 BUN) Creatinine (test 0.7 mg/dl 0.4-1.2 code = CREA) Sodium (test code = 137 mmol/l 137-145 NA) Potassium (test 3.8 mmol/l 3.5-5.0 code = K) Chloride (test code 104 mmol/l 98-107 = CL) CO2 (test code = 26 mmol/l 22-30 CO2) Calcium (test code 10.4 mg/dl 8.4-10.2 H = CALC) T Protein (test 9.0 gm/dl 5.1-8.7 H code = TP) Albumin (test code 4.7 gm/dl 3.5-4.6 H = ALB) A/G Ratio (test 1.1 % 1.1-2.2 code = AGRAT) AST (SGOT) (test 25 U/L 11-36 code = AST) ALT (SGPT) (test 25 U/L 11-40 code = ALT) Alkaline Phos (test 99 U/L 47-114 code = ALKP) Total Bilirubin 0.4 mg/dl 0.2-1.2 (test code = TBIL) Globulin (test code 4.3 gm/dl 2.3-3.5 H = GLOBU) Calcium, Corrected 9.8 mg/dl 8.4-10.2 Various f ormulas exist (test code = for corrected s martin CALCCORR) calcium results , each yielding differ ent values. This corrected resul t was based on the fo rmula: Corrected Calci um = SerumCalcium + [0.8 * ( 4 - SerumAlbu min)] EGFR if >60 Mauritanian (test code mL/min/1.73m\\ = EGFRAA) S\\2 EGFR if Non- >60 Estimate d Glomerular [place]ian (test code mL/min/1.73m\\ Filtrat ion Rate (eGFR) = EGFRNA) S\\2 Reference Inter vals Decision Points for 18 years and older and average body ma ss: >= 60 Does not exc lude kidney disease. 30 - 59 Suggests modera te chronic kidney disease and indicat es the need for furthe r investigation including asses sment of proteinuria and cardiovascular factors. < 30 Usually in dicates a need for refe rral for assessment and management of c hronic kidney failure. RAD, CHEST, 2 [id number] 09:32:00Reason for exam:->COUGH, feverFINAL REPORT Chest two views compared to October 21, 2015 Discussion: There is aright middle lobe infiltrate in keeping with pneumonia. Remainder of the lungs are clear. Heart sizenormal. No effusion or pneumothorax. Imaging discussed with Dr. Phan 0930 hours. Signed: Malcom Wolf Verified Date/Time: 2018 09:32:57 Reading Location: [facility] Radiology Reading Room
[2020-09-21] MEDS ORDERED: ONDANSETRON 4 MG (ODT) TAB ONE (12:33)
[2020-09-21 12:41] LABS: Absolute Lymphocytes (CBC) 1.9 K/uL (0.7-4.9); Basophils % 0.3 % (0-1.3); Hematocrit 42.7 % (39.6-49.0); Lymphocytes % 7.6 % (15.3-44.8); MPV 7.8 fL (7.6-11.3); RBC Red Blood Cell Count 4.64 M/uL (4.33-5.43)
[2020-09-21] MEDS ORDERED: FAMOTIDINE 20 MG/2 ML VIAL IV ONE (12:53)
[2020-09-21] MEDS ORDERED: MORPHINE 2 MG/ML SYR ONE (12:53)
[2020-09-21] MEDS ORDERED: ONDANSETRON 4 MG/2 ML VIAL ONE (12:53)
[2020-09-21] MEDS ORDERED: NA CHLORIDE 0.9% 1,000 ML ONE ×2 (12:53→14:18)
[2020-09-21 12:56] LABS: ALT/SGPT 21 U/L (12-78); AST/SGOT 38 U/L (15-37); Albumin 4.8 g/dL (3.4-5.0); Alkaline Phosphatase 86 U/L (45-117); BUN Blood Urea Nitrogen 13 mg/dL (7-18); Bicarbonate 20 mmol/L (21-32); Bilirubin Direct 0.1 mg/dL (0-0.2); Bilirubin Total 0.4 mg/dL (0.2-1.0); Glucose Level 167 mg/dL (74-106); Lipase 169 U/L (73-393); Potassium 3.7 mmol/L (3.5-5.1); Protein, Total 8.4 g/dL (6.4-8.2); Sodium Level 138 mmol/L (136-145)
[2020-09-21 13:12] LABS: Blood Morphology Comment NOT SEEN (NOT SEEN); Platelet Estimate ADEQ
--- NOTE | 2020-09-21 13:29 | RAD REPORT ---
EXAM DESCRIPTION: CT - Abdomen Pelvis W Contrast - 09/21/2020 12:58 pm CLINICAL HISTORY: Abdominal pain COMPARISON: none. TECHNIQUE: Computed axial tomography of the abdomen pelvis was obtained. 100 cc Isovue-300 was admin istered intravenously. Oral contrast was not requested which limits evaluation of bowel. All CT scans are performed using dose optimization technique as appropriate and may include automated exposure control or mA/KV adjustment according to patient size. FINDINGS: The liver, spleen, pancreas, adrenal and kidneys appear unremarkable. There is no evidence of diverticulitis. Normal appendix Spondylolysis L5 IMPRESSION: No acute abnormality is displayed.
[2020-09-21] MEDS ORDERED: MORPHINE 4 MG/ML SYR ONE (14:35)
[2020-09-21] MEDS ORDERED: PROMETHAZINE INJ 25 MG/ML AMP ONE (14:35)
[2020-09-21] MEDS ORDERED: PANTOPRAZOLE 40 MG INJ ONE (14:36)
--- NOTE | 2020-09-21 15:15 | ER ---
Nurse's Notes [facility] Name: Lele Ho Age: 25 yrs Sex: Male : 1995 Arrival Date: 09/21/2020 Time: 11:43 Bed 13 [facility] MD: Diagnosis: Nausea and vomiting;Diarrhea, unspecified Presentation: 09/21 12:15 Chief complaint: Patient states: Vomiting started at 1030, reports abdominal cramping, jl7 reports a little diarrhea x 1. Coronavirus screen: Client denies travel out of the [place] in the last 14 days. At this time, the client does not indicate any symptoms associated with coronavirus-19. Ebola Screen: No symptoms or risks identified at this time. Initial Sepsis Screen: Does the patient meet any 2 criteria? No. Patient's initial sepsis screen is negative. Does the patient have a suspected source of infection? No. Patient's initial sepsis screen is negative. Risk Assessment: Do you want to hurt yourself or someone else? Patient reports no desire to harm self or others. Onset of symptoms was September 21, 2020 at 10:30. Care prior to arrival: None. 12:15 Method Of Arrival: Wheelchair jl7 12:15 Acuity: MY 3 jl7 Historical: - Allergies: 12:17 No Known Allergies; jl7 - Home Meds: 12:17 None [Active]; jl7 - PMHx: 12:17 None; jl7 - PSHx: 12:17 None; jl7 - Immunization history:: Adult Immunizations unknown. - Social history:: Smoking status: Patient reports the use of cigarette tobacco products, smokes one pack cigarettes per day. Screenin:46 Abuse screen: Denies threats or abuse. Nutritional screening: No deficits noted. vg1 Tuberculosis screening: No symptoms or risk factors identified. Fall Risk No fall in past 12 months (0 pts). No secondary diagnosis (0 pts). IV access (20 points). Ambulatory Aid- None/Bed Rest/Nurse Assist (0 pts). Gait- Normal/Bed Rest/Wheelchair (0 pts) Mental Status- Oriented to own ability (0 pts). Total Carmona Fall Scale indicates No Risk (0-24 pts). Assessment: 12:37 General: Appears in no apparent distress. uncomfortable, Behavior is cooperative, vg1 anxious. Pain: Complains of pain in abdomen Pain currently is 10 out of 10 on a pain scale. Pain began this morning Noted to be grimacing, moaning, actively vomiting. Neuro: Level of Consciousness is awake, alert, obeys commands, Oriented to person, place, time, situation. Cardiovascular: Patient's skin is warm and dry. Respiratory: Airway is patent Respiratory effort is even, unlabored. GI: Abdomen is flat, non-distended, Reports diarrhea, nausea, vomiting. : No signs and/or symptoms were reported regarding the genitourinary system. EENT: No signs and/or symptoms were reported regarding the EENT system. Derm: Skin is intact, is healthy with good turgor. Musculoskeletal: Circulation, motion, and sensation intact. 14:00 Reassessment: Patient appears in no apparent distress at this time. No changes from vg1 previously documented assessment. Patient and/or family updated on plan of care and expected duration. Pain level reassessed. Patient is alert, oriented x 3, equal unlabored respirations, skin warm/dry/pink. actively vomiting. Vital Signs: 12:15 BP 143 / 79; Pulse 74; Resp 21; Pulse Ox 100% ; Weight 57.61 kg; jl7 12:45 BP 160 / 76; Pulse 72; Resp 20; Pulse Ox 100% on R/A; vg1 14:27 BP 146 / 104; Pulse 66; Resp 20; Pulse Ox 100% on R/A; vg1 ED Course: 11:43 Patient arrived in ED. mr 12:16 Triage completed. jl7 12:17 Arm band placed on right wrist. jl7 12:18 Dmitri Hernandez PA is PHCP. cp 12:18 Robin Jara MD is Attending Physician. cp 12:24 Ondina Monique, HANSA is Primary Nurse. vg1 12:43 Notified Nurse Practitioner and/or Physician Pattern Developer of a critical lab result(s), sv WBC-24.7. 12:46 Patient has correct armband on for positive identification. Bed in low position. Call vg1 light in reach. Side rails up X 1. Adult w/ patient. 12:48 Lipase Sent. sv 12:48 Hepatic Function Sent. sv 12:48 CBC with Diff Sent. sv 12:48 Basic Metabolic Panel Sent. sv 15:37 No provider procedures requiring assistance completed. IV discontinued, intact, vg1 bleeding controlled, No redness/swelling at site. Pressure dressing applied. Administered Medications: 12:39 Drug: Zofran (Ondansetron) 4 mg Route: IVP; Site: right antecubital; vg1 14:03 Follow up: Response: No adverse reaction; Nausea unchanged vg1 12:39 Drug: NS 0.9% 1000 ml Route: IV; Rate: 1 bolus; Site: right antecubital; vg1 14:03 Follow up: IV Status: Completed infusion; IV Intake: 1000ml vg1 12:41 Drug: Pepcid (famotidine) 20 mg Route: IVP; Site: right antecubital; vg1 14:03 Follow up: Response: No adverse reaction vg1 12:43 Drug: morphine 2 mg Route: IVP; Site: right antecubital; vg1 14:03 Follow up: Response: No adverse reaction; Pain is unchanged, physician notified vg1 14:03 Drug: NS 0.9% 1000 ml Route: IV; Rate: 1 bolus; Site: right antecubital; vg1 15:36 Follow up: IV Status: Completed infusion; IV Intake: 1000ml vg1 14:20 Drug: Phenergan (promethazine) 25 mg Route: IVP; Site: right antecubital; vg1 15:36 Follow up: Response: No adverse reaction; Nausea is decreased vg1 14:22 Drug: ProTONIX (pantoprazole) 40 mg Route: IVP; Site: right antecubital; vg1 15:36 Follow up: Response: No adverse reaction; Pain is decreased vg1 14:24 Drug: morphine 4 mg Route: IVP; Site: right antecubital; vg1 15:36 Follow up: Response: No adverse reaction; Pain is decreased vg1 Intake: 14:03 IV: 1000ml; Total: 1000ml. vg1 15:36 IV: 1000ml; Total: 2000ml. vg1 Outcome: 15:14 Discharge ordered by . cp 15:37 Discharged to home ambulatory. vg1 15:37 Condition: stable 15:37 Discharge instructions given to patient, Instructed on discharge instructions, follow up and referral plans. medication usage, Demonstrated understanding of instructions, follow-up care, medications, Prescriptions given X 2. 15:37 Patient left the ED. vg1 Signatures: Carine Rodriguez RN RN Steffany Davidson mr Dmitri Hernandez PA PA cp Leal, Jahala, RN RN jl7 Ondina Monique RN RN vg1
--- NOTE | 2020-09-21 15:15 | EDPHYS ---
Physician Documentation [facility] Name: Lele Ho Age: 25 yrs Sex: Male : 1995 Arrival Date: 09/21/2020 Time: 11:43 Bed 13 Private MD: ED Physician Robin Jara HPI: 09/21 12:30 This 25 yrs old Male presents to ER via Wheelchair with complaints of cp Vomiting, Weakness, Dehydration. 12:30 The patient presents to the emergency department with nausea, with "dry heaves", cp vomiting, that is continuous, described as bilious, diarrhea, 1 times today, abdominal pain, of the abdomen diffusely, described as constant. Onset: The symptoms/episode began/occurred today, at 10:30. Possible causes: unknown. Associated signs and symptoms: Pertinent negatives: constipation, fever, GI bleeding. Severity of symptoms: in the emergency department the symptoms are unchanged despite home interventions. Historical: - Allergies: 12:17 No Known Allergies; jl7 - Home Meds: 12:17 None [Active]; jl7 - PMHx: 12:17 None; jl7 - PSHx: 12:17 None; jl7 - Immunization history:: Adult Immunizations unknown. - Social history:: Smoking status: Patient reports the use of cigarette tobacco products, smokes one pack cigarettes per day. ROS: 12:35 Constitutional: Positive for poor PO intake, Negative for body aches, chills, fever. cp 12:35 Eyes: Negative for injury, pain, redness, and discharge. cp 12:35 ENT: Negative for ear pain, sore throat, difficulty swallowing, difficulty handling secretions. 12:35 Cardiovascular: Negative for chest pain. 12:35 Respiratory: Negative for cough, shortness of breath, wheezing. 12:35 Abdomen/GI: Positive for abdominal pain, nausea, vomiting, and diarrhea, Negative for hematemesis, black/tarry stool, rectal bleeding. 12:35 Back: Negative for radiated pain. 12:35 Neuro: Negative for altered mental status, headache, weakness. 12:35 All other systems are negative. Exam: 12:40 Constitutional: The patient appears in no acute distress, alert, awake, non-toxic, well cp developed, well nourished, uncomfortable. 12:40 Head/Face: Normocephalic, atraumatic. cp 12:40 Eyes: Periorbital structures: appear normal, Conjunctiva: normal, no exudate, no injection, Sclera: no appreciated abnormality, Lids and lashes: appear normal, bilaterally. 12:40 ENT: External ear(s): are unremarkable, Nose: is normal, Mouth: Lips: moist, Oral mucosa: moist, Posterior pharynx: Airway: no evidence of obstruction, patent. 12:40 Chest/axilla: Inspection: normal, Palpation: is normal, no crepitus, no tenderness. 12:40 Cardiovascular: Rate: normal, Rhythm: regular. 12:40 Respiratory: the patient does not display signs of respiratory distress, Respirations: normal, no use of accessory muscles, no retractions, labored breathing, is not present, Breath sounds: are clear throughout, no decreased breath sounds. 12:40 Abdomen/GI: Inspection: abdomen appears normal, Bowel sounds: active, all quadrants, Palpation: soft, in all quadrants, severe abdominal tenderness, in all quadrants, rebound tenderness, is not appreciated, voluntary guarding, is elicited in all quadrants, involuntary guarding, is not appreciated. 12:40 Back: CVA tenderness, is absent. 12:40 Neuro: Orientation: to person, place \\T\\ time. Mentation: is normal. Vital Signs: 12:15 BP 143 / 79; Pulse 74; Resp 21; Pulse Ox 100% ; Weight 57.61 kg; jl7 12:45 BP 160 / 76; Pulse 72; Resp 20; Pulse Ox 100% on R/A; vg1 14:27 BP 146 / 104; Pulse 66; Resp 20; Pulse Ox 100% on R/A; vg1 MDM: 12:22 Patient medically screened. cp 15:12 Data reviewed: vital signs, nurses notes, lab test result(s), radiologic studies, CT cp scan. 15:12 Counseling: I had a detailed discussion with the patient and/or guardian regarding: the cp historical points, exam findings, and any diagnostic results supporting the discharge/admit diagnosis, lab results, radiology results, to return to the emergency department if symptoms worsen or persist or if there are any questions or concerns that arise at home. Response to treatment: the patient's symptoms have markedly improved after treatment, patient is well hydrated. and as a result, I will discharge patient. 09/21 12:24 Order name: Basic Metabolic Panel cp 09/21 12:24 Order name: CBC with Diff cp 09/21 12:24 Order name: Hepatic Function cp 09/21 12:24 Order name: Lipase cp 09/21 12:44 Order name: CBC with Automated Diff; Complete Time: 13:40 EDMS 09/21 13:42 Interpretation: Normal except: WBC 24.70; JOSEPHINE% 85.3; LYM% 7.6; NEUT A 21.1; MNA 1.6. cp 09/21 12:56 Order name: Basic Metabolic Panel; Complete Time: 13:40 EDMS 09/21 12:24 Order name: CT Abd/Pelvis - IV Contrast Only cp 09/21 12:56 Order name: Liver (Hepatic) Function; Complete Time: 13:40 EDMS 09/21 12:56 Order name: Lipase; Complete Time: 13:40 EDMS 09/21 13:13 Order name: Manual Differential; Complete Time: 13:40 EDMS 09/21 13:31 Order name: CT; Complete Time: 13:40 EDMS 09/21 13:43 Interpretation: Report reviewed. cp 09/21 12:24 Order name: IV Saline Lock; Complete Time: 12:42 cp 09/21 12:24 Order name: Labs collected and sent; Complete Time: 12:42 cp Administered Medications: 12:39 Drug: Zofran (Ondansetron) 4 mg Route: IVP; Site: right antecubital; vg1 14:03 Follow up: Response: No adverse reaction; Nausea unchanged vg1 12:39 Drug: NS 0.9% 1000 ml Route: IV; Rate: 1 bolus; Site: right antecubital; vg1 14:03 Follow up: IV Status: Completed infusion; IV Intake: 1000ml vg1 12:41 Drug: Pepcid (famotidine) 20 mg Route: IVP; Site: right antecubital; vg1 14:03 Follow up: Response: No adverse reaction vg1 12:43 Drug: morphine 2 mg Route: IVP; Site: right antecubital; vg1 14:03 Follow up: Response: No adverse reaction; Pain is unchanged, physician notified vg1 14:03 Drug: NS 0.9% 1000 ml Route: IV; Rate: 1 bolus; Site: right antecubital; vg1 15:36 Follow up: IV Status: Completed infusion; IV Intake: 1000ml vg1 14:20 Drug: Phenergan (promethazine) 25 mg Route: IVP; Site: right antecubital; vg1 15:36 Follow up: Response: No adverse reaction; Nausea is decreased vg1 14:22 Drug: ProTONIX (pantoprazole) 40 mg Route: IVP; Site: right antecubital; vg1 15:36 Follow up: Response: No adverse reaction; Pain is decreased vg1 14:24 Drug: morphine 4 mg Route: IVP; Site: right antecubital; vg1 15:36 Follow up: Response: No adverse reaction; Pain is decreased vg1 Disposition: 09/22 13:12 Co-signature as Attending Physician, Robin Jara MD. rn Disposition: 09/21/20 15:14 Discharged to Home. Impression: Nausea and vomiting, Diarrhea, unspecified. - Condition is Stable. - Discharge Instructions: Food Choices to Help Relieve Diarrhea, Adult, Dehydration, Adult, Diarrhea, Adult, Nausea and Vomiting, Adult. - Prescriptions for Bentyl 20 mg Oral Tablet - take 1 tablet by ORAL route every 6 hours As needed; 20 tablet. promethazine 25 mg Oral Tablet - take 1 tablet by ORAL route every 6 hours As needed; 20 tablet. - Medication Reconciliation Form, Thank You Letter, Antibiotic Education, Prescription Opioid Use form. - Follow up: Private Physician; When: 1 - 2 days; Reason: Worsening of condition. - Problem is new. - Symptoms have improved. Signatures: Dispatcher [employer] Robin Stokes MD MD rn Page, Corey, PA PA cp Leal, Jahala RN RN jl7 Ondina Monique RN RN vg1 Corrections: (The following items were deleted from the chart) 09/21 13:42 13:42 Normal except: WBC 24.70; JOSEPHINE% 85.3; LYM% 7.6. cp cp 13:42 13:42 Normal except: WBC 24.70; JOSEPHINE% 85.3; LYM% 7.6; NEUT A 21.1. cp cp 15:37 15:14 09/21/2020 15:14 Discharged to Home. Impression: Nausea and vomiting; Diarrhea, vg1 unspecified. Condition is Stable. Forms are Medication Reconciliation Form, Thank You Letter, Antibiotic Education, Prescription Opioid Use. Follow up: Private Physician; When: 1 - 2 days; Reason: Worsening of condition. Problem is new. Symptoms have improved. cp
== END 2020-09-21 15:37 | disposition home or self-care (01) ==
LOC: ER 11:41
DX: R19.7 Diarrhea, unspecified (principal); F17.210 Nicotine dependence, cigarettes, uncomplicated
CPT/HCPCS: 36415; 74177; 80048; 80076; 82565; 83690; 85025; 96361; 96374; 96375; 99283; C9113; J2270; J2405; J2550; J7030; Q9967